=== PATIENT | female | born 1960 | race Caucasian/White ===

== ENCOUNTER 2018-06-20 11:27 | Emergency (ER) | payer BC, OTHER ==
--- NOTE | 2018-06-20 12:25 | EDM.PDOC ---
ED HPI GENERAL MEDICAL PROBLEM - General Chief Complaint: Cardiovascular Problem Stated Complaint: High BLOOD PRES 190/130 NUMBNESS IN LEFT HAND Time Seen by Provider: 06/20/18 12:01 Source of Information: Reports: Patient, RN Notes Reviewed History Limitations: Reports: No Limitations - History of Present Illness INITIAL COMMENTS - FREE TEXT/NARRATIVE: Patient is a 58 year old female who presents to the ED for the evaluation of left chest pressure/arm numbness/tingling with BP of 190s systolically. 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 She notes that she was at work last night when she began to feel "not right". She did take her BP at work and it was elevated at 160/110. When she got off work, she went to the [facility] in [facility] and her BP then was 196/136 , so they sent her to the ED for evaluation. She states that she does not currently take anything for BP medications. She is a non-smoker, not an alcohol user, or drug user. She does note that she has around 4 cups of coffee/day normally. She further relates an extensive family history of heart issues; with her mother and brother with defibrillators at an early age. She denies any chest pain, shortness of breath, headache or dizziness, nausea/vomiting/ diarrhea. She states that this was mostly just some pressure in her upper left chest with numbness/tingling into her left arm. She further denies any trauma to her left shoulder or arm. Left Shoulder Pain Score (Numeric/FACES): 2 - Related Data Allergies Allergy/AdvReac Type Severity Reaction Status Date / Time No Known Allergies Allergy Verified 06/20/18 11:35 Home Meds: Home Meds . [No Known Home Meds] 06/20/18 [History] Past Medical History - Past Health History Medical/Surgical History: Denies Medical/Surgical History Social & Family History - Family History Cardiac: Reports: AICD (mother and brother), OK (brother at age 42) - Tobacco Use Smoking Status *Q: Never Smoker Second Hand Smoke Exposure: No - Caffeine Use Caffeine Use: Reports: Coffee (4 cups/day) - Recreational Drug Use Recreational Drug Use: No ED ROS GENERAL - Review of Systems Review Of Systems: See Below Constitutional: Reports: No Symptoms HEENT: Reports: No Symptoms Respiratory: Reports: No Symptoms Cardiovascular: Reports: Blood Pressure Problem. Denies: Edema, Lightheadedness , Orthopnea, Syncope Endocrine: Reports: No Symptoms GI/Abdominal: Reports: No Symptoms : Reports: No Symptoms Musculoskeletal: Reports: No Symptoms Skin: Reports: No Symptoms Neurological: Reports: Numbness (left arm), Tingling (left arm) Psychiatric: Reports: No Symptoms Hematologic/Lymphatic: Reports: No Symptoms Immunologic: Reports: No Symptoms ED EXAM, GENERAL - Physical Exam Exam: See Below Exam Limited By: No Limitations General Appearance: Alert, WD/WN, No Apparent Distress Eye Exam: Bilateral Eye: EOMI, Normal Fundi, Normal Inspection, PERRL Ears: Normal External Exam Nose: Normal Inspection Throat/Mouth: Normal Inspection, Normal Oropharynx, No Airway Compromise Head: Atraumatic, Normocephalic Neck: Normal Inspection, Supple, Non-Tender, Full Range of Motion Respiratory/Chest: No Respiratory Distress, Lungs Clear, Normal Breath Sounds, No Accessory Muscle Use, Chest Non-Tender Cardiovascular: Normal Peripheral Pulses, Regular Rate, Rhythm, No Edema, No JVD , No Murmur, No Rub GI/Abdominal: Normal Bowel Sounds, Soft, Non-Tender, No Distention Back Exam: Normal Inspection, Full Range of Motion Extremities: Normal Inspection, Normal Range of Motion, Non-Tender, Normal Capillary Refill Neurological: Alert, Oriented, Normal Cognition, No Motor/Sensory Deficits Psychiatric: Normal Affect, Normal Mood Skin Exam: Warm, Dry, Intact, Normal Color, No Rash EKG INTERPRETATION EKG Date: 06/20/18 Time: 11:50 Rhythm: NSR Rate (Beats/Min): 86 [place]: Normal P-Wave: Present QRS: Normal ST-T: Normal QT: Normal Comparison: NA - No Prior EKG EKG Interpretation Comments: reviewed with Dr. Tapia Course - Vital Signs Last Recorded V/S: Last Vital Signs Temp 98.1 F 06/20/18 11:31 Pulse 105 H 06/20/18 11:31 Resp 18 06/20/18 11:31 BP 195/119 H 06/20/18 11:31 Pulse Ox 98 06/20/18 11:31 - Orders/Labs/Meds Orders: Active Orders 24 hr Category Date Time Status EKG 12 Lead [EKG Documentation Completion] [RC] STAT Care 06/20/18 11:44 Active Chest 1V Frontal [CR] Urgent Exams 06/20/18 12:18 Ordered Labs: Laboratory Tests 06/20/18 06/20/18 06/20/18 Range/Units 12:30 12:30 12:30 WBC 5.48 (3.98-10.04) K/mm3 RBC 4.35 (3.98-5.22) M/mm3 Hgb 14.0 (11.2-15.7) gm/L Hct 41.4 (34.1-44.9) % MCV 95.2 H (79.4-94.8) fl MCH 32.2 (25.6-32.2) pg MCHC 33.8 (32.2-35.5) g/dl RDW Std Deviation 42.9 (36.4-46.3) fL Plt Count 171 L (182-369) K/mm3 MPV 8.7 L (9.4-12.3) fl Neutrophils % (Manual) 62 H (40-60) % Band Neutrophils % 0 (0-10) % Lymphocytes % (Manual) 34 (20-40) % Atypical Lymphs % 0 % Monocytes % (Manual) 3 (2-10) % Eosinophils % (Manual) 1 (0.7-5.8) % Basophils % (Manual) 0 L (0.1-1.2) Platelet Estimate Adequate RBC Morph Comment Normal D-Dimer, Quantitative 0.36 (0.19-0.50) mg/L Sodium 141 (136-145) mEq/L Potassium 3.3 L (3.5-5.1) mEq/L Chloride 103 (98-107) mEq/L Carbon Dioxide 25 (21-32) mEq/L Anion Gap 16.3 H (5-15) BUN 16 (7-18) mg/dL Creatinine 0.8 (0.55-1.02) mg/dL Est Cr Clr Drug Dosing 67.00 mL/min Estimated GFR (MDRD) > 60 (>60) mL/min BUN/Creatinine Ratio 20.0 H (14-18) Glucose 109 H (74-106) mg/dL Calcium 9.2 (8.5-10.1) mg/dL Total Bilirubin 0.8 (0.2-1.0) mg/dL AST 37 (15-37) U/L ALT 67 H (14-59) U/L Alkaline Phosphatase 96 (46-116) U/L Troponin I < 0.017 (0.00-0.056) ng/mL Total Protein 7.9 (6.4-8.2) g/dl Albumin 4.2 (3.4-5.0) g/dl Globulin 3.7 gm/dL Albumin/Globulin Ratio 1.1 (1-2) - Re-Assessments/Exams Free Text/Narrative Re-Assessment/Exam: 06/20/18 12:42 Pt presents to the ED for the evaluation of increased BP with left chest pressure and left arm numbness/tingling. EKG was obtained by triage nurse and is essentially WNL, her BP at time of my evaluation was in the 150-160s systolically. Have ordered CBC, CMP, trop, D-dimer, for further evaluation. The patient did relate that she has an appointment with Britany Padron on , she was urged to keep this appointment. She will likely need to start blood pressure medications or make some lifestyle changes to help with her blood pressure issues. Lifestyle changes were discussed; like increased exercise, dietary modifications, etc. Labs are pending. 06/20/18 13:07 Most of her labs are back and are essentially WNL, trop is negative, d-dimer is 0.37, CXR does not demonstrated any apparent acute abnormalities. Her potassium was a touch low at 3.3, she will be offered supplementation of 20 mEq. She will be advised to keep her appointment with Britany Padron for further evaluation. 06/20/18 13:15 Pt denied any potassium supplementation at this time. Departure - Departure Time of Disposition: 13:15 Disposition: Home, Self-Care 01 Condition: Fair Clinical Impression: High blood pressure Qualifiers: Hypertension type: unspecified Qualified Code(s): I10 - Essential (primary) hypertension Instructions: DASH Eating Plan, Hypertension, [id number] Referrals: Britany Padron PA-C [Primary Care Provider] - Forms: ED Department Discharge Additional Instructions: You have been evaluated in the ED for your high blood pressure. Your workup in the ED was essentially normal, your EKG did not demonstrate any acute changes and your troponin was normal. Suggest lifestyle changes such as the DASH diet and increased exercise, information has been provided on this. Please keep your appointment with Britany Padron on 06-27-18 for further management. Please return to ED if your symptoms should change or worsen. - My Orders Last 24 Hours: My Active Orders 06/20/18 11:44 EKG 12 Lead [EKG Documentation Completion] [RC] STAT 06/20/18 12:18 Chest 1V Frontal [CR] Urgent - Assessment/Plan Last 24 Hours: My Active Orders 06/20/18 11:44 EKG 12 Lead [EKG Documentation Completion] [RC] STAT 06/20/18 12:18 Chest 1V Frontal [CR] Urgent
--- NOTE | 2018-06-20 15:02 | CR ---
Chest: Portable view of the chest was obtained. Comparison: No prior chest x-ray. Heart size and mediastinum are normal. Lungs are clear. Bony structures are grossly intact. Impression: 1. Nothing acute is seen on portable chest x-ray. Diagnostic code #1
== END 2018-06-20 13:24 | disposition home or self-care (01) ==
LOC: JD.ED 11:27
DX: I10 Essential (primary) hypertension (principal)
CPT/HCPCS: 36415; 71045; 71045-26; 80053; 84484; 85007; 85027; 85379; 93005; 93010; 99284; 99284-25